=== PATIENT | male | born 1990 | race Two or more races ===

== ENCOUNTER 2017-11-26 00:30 | Emergency (ER) | payer OTHER ==
[~2017-11-26] VITALS: Ht 165.1 cm; Wt 77.0 kg
[2017-11-26 01:19] VITALS: BP 130/70
== END 2017-11-26 05:11 | disposition left against medical advice (07) ==
LOC: ER 04:09
DX: R10.9 Unspecified abdominal pain (principal); M25.522 Pain in left elbow; M25.562 Pain in left knee; Z53.21 Procedure and treatment not carried out due to patient leaving prior to being seen by health care provider